=== PATIENT | female | born 1990 | race Caucasian/White ===

== ENCOUNTER 2019-01-08 06:46 | Inpatient (IN) | payer OTHER ==
[~2019-01-08] VITALS: Ht 167.6 cm; Wt 63.5 kg
[2019-01-08] MEDS ORDERED: NAPROXEN250 MG PO (09:01)
== END 2019-01-10 15:47 | DRG 743 ==
LOC: OB/GYN 06:46 → O/R 06:46 → OB/GYN 11:50
PROVIDERS: ADMIT Obstetrics & Gynecology
PROC: 0DNW4ZZ Release Peritoneum, Percutaneous Endoscopic Approach (ICD-10-PCS; 2019-01-08)
PROC: 0UB04ZZ Excision of Right Ovary, Percutaneous Endoscopic Approach (ICD-10-PCS; principal; 2019-01-08 09:45)
DX: N83.291 Other ovarian cyst, right side (principal); N73.6 Female pelvic peritoneal adhesions (postinfective)

== ENCOUNTER 2020-08-29 08:27 | Outpatient (CLI) | payer OTHER ==
[~2020-08-29 08:27] MED LIST: NAPROXEN250 MG PO
[2020-09-04] MEDS ORDERED: KETO10TA2 PO (13:25)
== END 2020-08-29 08:37 | disposition home or self-care (01) ==
LOC: SONOGRAMA 08:27
PROVIDERS: ATTEND Obstetrics & Gynecology
DX: N83.291 Other ovarian cyst, right side (principal)

== ENCOUNTER 2021-07-12 09:33 | Outpatient (CLI) | payer OTHER ==
[~2021-07-12 09:33] MED LIST changes: +KETO10TA2 PO
== END 2021-07-12 09:34 | disposition home or self-care (01) ==
LOC: RX STUDY 09:33
PROVIDERS: ATTEND Obstetrics & Gynecology
DX: N70.01 Acute salpingitis (principal); N88.8 Other specified noninflammatory disorders of cervix uteri; M48.02 Spinal stenosis, cervical region